=== PATIENT | female | born 1985 | race African-American/Black ===

== ENCOUNTER 2023-10-02 06:39 | Emergency (ER) | payer OTHER, SELFPAY ==
--- NOTE | ~2023-10-02 | CT_ITS ---
EXAMINATION: CT lumbar spine wo con DATE: 10/02/2023 08:31 INDICATION: Left-sided sciatica. TECHNIQUE: Computed tomography (CT) of the lumbar spine was performed without intravenous contrast. A utomated exposure control and iterative reconstruction technique were employed. The dose-length produ ct was 1191.20 mGy-cm. COMPARISON: None FINDINGS: There is 3 degrees dextrocurvature of lumbar spine. There is mild chronic anterior wedging of T12 vertebral body. There is mildly decreased disc height at L5-S1. The following disc levels are specifically discussed: L1-L2: The disc does not extend beyond the endplate margin. There is moderate bilateral facet joint o steoarthritis. There is no neural foraminal stenosis. There is no central canal stenosis. L2-L3: The disc does not extend beyond the endplate margin. There is mild bilateral facet joint osteo arthritis. There is no neural foraminal stenosis. There is no central canal stenosis. L3-L4: The disc does not extend beyond the endplate margin. There is mild bilateral facet joint osteo arthritis. There is no neural foraminal stenosis. There is no central canal stenosis. L4-L5: The disc does not extend beyond the endplate margin. There is mild bilateral facet joint osteo arthritis. There is no neural foraminal stenosis. There is no central canal stenosis. L5-S1: The disc is bulging. There is severe bilateral facet joint osteoarthritis. There is mild right and moderate left neural foraminal stenosis. There is mild central canal stenosis. IMPRESSION: 1. Moderate left neural foraminal stenosis at L5-S1. Otherwise mild lumbar spondylosis. Reviewed, dictated and finalized at location A. IMPRESSION: 1. Moderate left neural foraminal stenosis at L5-S1. Otherwise mild lumbar spon dylosis.
[2023-10-02 06:38] VITALS: PULSE 81; RESP 16; TEMP 36.8; O2SAT 100
[2023-10-02 06:45] VITALS: BP 149/106; PULSE 77; RESP 16; TEMP 36.3; O2SAT 99
[2023-10-02] MEDS: HYDROmorphone HCL INJ (*CRX) 1 MG/ML SYR IM (08:09)
--- NOTE | 2023-10-02 08:13 | ED.BACK ---
HPI - Back Pain/Injury General Chief Complaint: Back Pain/Injury Stated Complaint: sciatic pain x 3 days Time Seen by Provider: 10/02/23 07:51 History of Present Illness HPI Narrative: Pt complains of sciatic nerve pain on left. Pt started on prednisone 60 mg a day a couple of days ago and muscle relaxers but is not getting any relief. Pt stood up today and fell to ground due to pain with weight bearing. Pt denies problems with bladder or bowels or any numbness or weakness. Pt says the pain is worse since falling. Related Data Home Medications Medication Instructions Recorded Confirmed metformin 500 mg tablet 500 mg PO BID 10/02/23 prednisone 20 mg tablet mg 10/02/23 tizanidine 4 mg tablet 4 mg PO HS PRN Acid Reflux 10/02/23 Allergies Allergy/AdvReac Type Severity Reaction Status Date / Time No Known Allergies Allergy Verified 10/02/23 06:43 Review of Systems Review of Systems: All systems reviewed & are unremarkable except as noted in HPI and below Exam Const: General: healthy appearing and no acute distress Nutritional Appearance: well nourished Orientation/consciousness: patient oriented x3 Limitations: no limitations Resp: Effort & Inspection: normal respiratory effort Auscultation: clear to auscultation bilaterally Cardio: Rate: regular rate Rhythm: regular rhythm GI: Auscultation: normal bowel sounds Back/Spine/Pelvis: Other: tender left sciatic notch Skin: General skin exam: normal color Wounds: no wounds Neuro: General: patient oriented x3, moves all extremities, no focal motor deficits and CN's II-XI intact bilaterally Speech: normal speech Extrem: General: normal to inspection and no clubbing, cyanosis or edema Psych: Mental Status: mental status grossly normal Affect: normal affect Attitude: cooperative Course Vital Signs Vital signs: Vital Signs Temperature 98.2 F 10/02/23 06:38 Pulse Rate 81 10/02/23 06:38 Respiratory Rate 16 10/02/23 06:38 Pulse Oximetry 100 10/02/23 06:38 Oxygen Delivery Room Air 10/02/23 06:38 Temperature 97.4 F L 10/02/23 06:45 Pulse Rate 81 10/02/23 10:05 Respiratory Rate 20 10/02/23 10:05 Blood Pressure 126/79 10/02/23 10:05 Pulse Oximetry 100 10/02/23 10:05 Oxygen Delivery Room Air 10/02/23 06:38 MDM - Back Pain/Injury MDM Narrative Medical decision making narrative: Pt presents with sciatic nerve pain which caused her to fall this morning worsening pain. Will give IM dilaudid for pain and image with CT LS spine to rule out fx or impingement. Pt says her whole leg feels numb. CT showed foraminal narrowing but no fx. Pt tirado somewhat improved with dilaudid and toradol. home on norco and off work for 2 days. Lab Data Labs: UCG Bedside Result Negative Reference Range: Negative Discharge Plan Discharge Clinical Impression: Sciatica Patient Disposition: Home, Self-Care Condition: Improved Instructions: Antibiotic Form, Sciatica (ED) Prescriptions: New hydrocodone-acetaminophen 5-325 mg tablet 1 tablet PO Q6H PRN (Reason: pain) Qty: 14 0RF No Action metformin 500 mg Tablet 500 mg PO BID tizanidine 4 mg Tablet 4 mg PO HS PRN (Reason: Acid Reflux) prednisone 20 mg Tablet Follow-up/Referrals: UNKNOWN,DOCTOR [Primary Care Provider] - Stand Alone Forms: Work/School Release IP
[2023-10-02 08:30] VITALS: BP 137/77; PULSE 68; RESP 16; O2SAT 100
[2023-10-02] MEDS: KETOROLAC 30 MG/ML VIAL (*BKC) IM (09:14)
[2023-10-02 09:30] VITALS: BP 121/62; PULSE 64; RESP 16; O2SAT 100
[2023-10-02 10:05] VITALS: BP 126/79; PULSE 81; RESP 20; O2SAT 100
== END 2023-10-02 10:06 | disposition home or self-care (01) ==
PROVIDERS: Emergency Provider Emergency Medicine
DX: M54.32 Sciatica, left side (principal); Z79.84 Long term (current) use of oral hypoglycemic drugs; Z79.899 Other long term (current) drug therapy
CPT/HCPCS: 72131; 81025; 96372; 99284; J1170; J1885

== ENCOUNTER 2024-01-09 18:22 | Emergency (ER) | payer OTHER, SELFPAY ==
--- NOTE | ~2024-01-09 | XR_ITS ---
XR knee LT min 4V Ordering provider: Kelsea Ho History: . PAIN RADIATING UP FROM ANKLE, TWISTING INJURY . Comparison: None. FINDINGS: BONES: No acute fracture or dislocation. JOINT SPACES: Marginal osteophytes suggestive of early osteoarthritic changes. SOFT TISSUES: Normal. IMPRESSION: No acute osseous abnormality left knee. Mild osteoarthritic changes. Reviewed, dictated and finalized at location A.
--- NOTE | ~2024-01-09 | XR_ITS ---
XR foot LT min 3V Ordering provider: Kelsea Ho PA-C History: . POSTERIOR ANKLE PAIN, TWISTING INJURY . Comparison: None. FINDINGS: BONES: No acute fracture or dislocation. Calcaneus spur. JOINT SPACES: Normal. No tarsal coalition. SOFT TISSUES: Normal. IMPRESSION: No acute osseous abnormality left foot. Reviewed, dictated and finalized at location A.
--- NOTE | ~2024-01-09 | XR_ITS ---
XR ankle LT min 3V Ordering provider: Kelsea Ho PA-C History: . TWISTING INJURY, POSTERIOR ANKLE PAIN . Comparison: None. FINDINGS: BONES: No acute fracture or dislocation. Calcaneus spur. Small bony fragments seen medially to the talus most likely old fractures. JOINT SPACES: The ankle mortise is normal. SOFT TISSUES: Soft tissue swelling over the medial and lateral menisci. IMPRESSION: No acute osseous abnormality left ankle. Reviewed, dictated and finalized at location A.
[2024-01-09 18:25] VITALS: BP 155/99; PULSE 108; RESP 20; TEMP 36.6; O2SAT 96
--- NOTE | 2024-01-09 18:28 | ED.LOWEXIN ---
HPI - Extremity Injury (Lower) General Chief Complaint: Extremity Injury, Lower <PAM Pedraza Last Filed: 01/09/24 18:30> Stated Complaint: LEFT ankle injury <PAM Pedraza Last Filed: 01/09/24 18:30> Time Seen by Provider: 01/09/24 18:28 <PAM Pedraza Last Filed: 01/09/24 18:30> Focused HPI: Patient is a 38-year-old female who presents the ED with report of a fall. 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 She rolled her left ankle in the process and fell down onto her left knee. Complains of pain to her left knee, left ankle, left foot. Denies HI/LOC. Denies numbness. GENERAL: Well-appearing, well-nourished, and in no acute distress. HEAD: Normocephalic, atraumatic. CHEST: Clear to auscultation. ?No respiratory distress. HEART: Regular rate and rhythm.? MSK: Peripheral pulses intact. Sensation intact. Tenderness to palpation throughout left lateral malleoli. Mild swelling noted. Tenderness throughout lateral knee. NEURO: ?Alert and oriented x3. Patient screened in triage and initial orders placed.? ?Additional care and disposition to be based upon?diagnostic testing and treatment. <PAM Pedraza Last Filed: 01/09/24 18:30> Source: patient <PAM Pedraza Last Filed: 01/09/24 18:30> Mode of arrival: ambulatory <PAM Pedraza Last Filed: 01/09/24 18:30> Limitations: no limitations <PAM Pedraza Last Filed: 01/09/24 18:30> Related Data Home Medications: Home Medications Medication Instructions Recorded Confirmed metformin 500 mg tablet 500 mg PO BID 10/02/23 prednisone 20 mg tablet mg 10/02/23 tizanidine 4 mg tablet 4 mg PO HS PRN Acid Reflux 10/02/23 <PAM Pedraza Last Filed: 01/09/24 18:30> Allergies/Adverse Reactions: Allergies Allergy/AdvReac Type Severity Reaction Status Date / Time No Known Allergies Allergy Verified 01/09/24 18:24 <Kelsea Ho PA-C - Last Filed: 01/09/24 18:30> Review of Systems Review of Systems: All systems reviewed & are unremarkable except as noted in HPI and below <Monae Johnson MD - Last Filed: 01/09/24 19:23> Exam Narrative: EXAMINATION OF ORGAN SYSTEMS/BODY AREAS: Constitutional: Vital signs per nursing GENERAL:[No acute distress, non-toxic appearing.] HEAD: Normal with no signs of head trauma. EYES: EOMI, conjunctiva normal ENT: Hearing grossly intact LUNGS: Nonlabored breathing. HEART: [Regular rate and rhythm] ABD: [Soft], [nontender to palpation] EXT: Normal range of motion, slight tenderness to palpation to the left lateral malleolus SKIN: [No rashes or lesions.] NEURO: [Alert and oriented x 3. No gross focal sensory or strength deficits.] PSYCH: Normal affect <Monae Johnson MD - Last Filed: 01/09/24 19:23> Course Vital Signs Vital signs: Vital Signs Temperature 98 F 01/09/24 18:25 Pulse Rate 108 H 01/09/24 18:25 Respiratory Rate 20 01/09/24 18:25 Blood Pressure 155/99 H 01/09/24 18:25 Pulse Oximetry 96 01/09/24 18:25 Oxygen Delivery Room Air 01/09/24 18:25 Temperature 98 F 01/09/24 18:25 Pulse Rate 108 H 01/09/24 18:25 Respiratory Rate 20 01/09/24 18:25 Blood Pressure 155/99 H 01/09/24 18:25 Pulse Oximetry 96 01/09/24 18:25 Oxygen Delivery Room Air 01/09/24 18:25 <Kelsea Ho PA-C - Last Filed: 01/09/24 18:30> Vital Signs Temperature 98 F 01/09/24 18:25 Pulse Rate 108 H 01/09/24 18:25 Respiratory Rate 20 01/09/24 18:25 Blood Pressure 155/99 H 01/09/24 18:25 Pulse Oximetry 96 01/09/24 18:25 Oxygen Delivery Room Air 01/09/24 18:25 Temperature 98 F 01/09/24 18:25 Pulse Rate 108 H 01/09/24 18:25 Respiratory Rate 20 01/09/24 18:25 Blood Pressure 155/99 H 01/09/24 18:25 Pulse Oximetry 96 01/09/24 18:25 Oxygen Deli
[2024-01-09] MEDS: KETOROLAC 30 MG/ML VIAL (*BKC) IM (19:22)
== END 2024-01-09 19:38 | disposition home or self-care (01) ==
PROVIDERS: Emergency Provider Emergency Medicine
DX: S93.402A Sprain of unspecified ligament of left ankle, initial encounter (principal); S96.912A Strain of unspecified muscle and tendon at ankle and foot level, left foot, initial encounter; W01.0XXA Fall on same level from slipping, tripping and stumbling without subsequent striking against object, initial encounter
CPT/HCPCS: 73564; 73610; 73630; 96372; 99284; J1885